=== PATIENT | female | born 1945 | race Two or more races ===

== ENCOUNTER 2017-03-18 11:29 | Emergency (ER) | payer MEDICARE, OTHER | END 2017-03-18 14:55 | disposition home or self-care (01) | LOC: FTE 11:29 | DX: M25.552 Pain in left hip (principal); J45.909 Unspecified asthma, uncomplicated; M54.9 Dorsalgia, unspecified; Z79.84 Long term (current) use of oral hypoglycemic drugs | CPT/HCPCS: 70450; 73510; 99284-25 ==

== ENCOUNTER 2018-09-30 21:52 | Emergency (ER) | payer MEDICARE, OTHER ==
[2018-10-01 01:41] LABS: URINE BLOOD (Dip) POC Trace-intact (NEGATIVE); URINE GLUCOSE (Dip) POC Negative (NEGATIVE); URINE KETONES (Dip) POC Trace (NEGATIVE); URINE LEUKOCYTE EST (Dip) POC Trace (NEGATIVE); URINE NITRITE (Dip) POC Negative (NEGATIVE); URINE TOTAL PROTEIN POC 3+ (NEGATIVE)
[2018-10-01 01:41] LABS: URINE PH (Dip) POC 5.5 (5.0-8.5)
[2018-10-01 01:46] LABS: ADD MAN DIFF? NO
[2018-10-01 01:48] LABS: WHITE BLOOD COUNT 11.4 10^3/ul (4.8-10.8)
[2018-10-01 01:48] LABS: BASOPHIL # 0.1 10^3/ul (0.0-0.1); BASOPHILS % 0.9 % (0.0-2.0); EOSINOPHILS # 0.5 10^3/ul (0.0-0.5); EOSINOPHILS % 4.8 % (0.0-7.0); HEMATOCRIT 48.7 % (37.0-47.0); HEMOGLOBIN 15.2 g/dl (12.0-16.0); LYMPHOCYTES # 2.8 10^3/ul (0.8-2.9); LYMPHOCYTES % 24.2 % (15.0-51.0); MEAN CORPUSCULAR HEMOGLOBIN 26.3 pg (29.0-33.0); MEAN CORPUSCULAR HGB CONC 31.2 g/dl (32.0-37.0); MEAN CORPUSCULAR VOLUME 84.3 fl (82.0-101.0); MEAN PLATELET VOLUME 9.3 fl (7.4-10.4); MONOCYTE # 0.7 10^3/ul (0.3-0.9); MONOCYTES % 5.9 % (0.0-11.0); NEUTROPHIL # 7.3 10^3/ul (1.6-7.5); NEUTROPHILS % 63.8 % (39.0-77.0); PLATELET COUNT 324 10^3/UL (140-415); RED BLOOD COUNT 5.78 10^6/ul (4.20-5.40); RED CELL DISTRIBUTION WIDTH 14.3 % (11.5-14.5)
[2018-10-01 02:05] LABS: ALANINE AMINOTRANSFERASE 14 IU/L (13-69); ALBUMIN 4.7 g/dl (3.3-4.9); ALBUMIN/GLOBULIN RATIO 1.17; ALKALINE PHOSPHATASE 92 IU/L (42-121); ANION GAP 12 (5-13); ASPARTATE AMINO TRANSFERASE 27 IU/L (15-46); BILIRUBIN,INDIRECT 0.5 mg/dl (0-1.1); BILIRUBIN,TOTAL 0.5 mg/dl (0.2-1.3); BLOOD UREA NITROGEN 34 mg/dl (7-20); CALCIUM 10.7 mg/dl (8.4-10.2); CARBON DIOXIDE 31 mmol/L (21-31); CHLORIDE 103 mmol/L (97-110); CREATININE 1.54 mg/dl (0.44-1.00); GLUCOSE 137 mg/dl (70-220); LIPASE 329 U/L (23-300); POTASSIUM 3.9 mmol/L (3.5-5.1); SODIUM 146 mmol/L (135-144); TOTAL PROTEIN 8.7 g/dl (6.1-8.1)
[2018-10-01 02:16] LABS: TROPONIN-I 0.022 ng/ml (0.000-0.120)
[2018-10-01] MEDS: SOD CHLORIDE 0.9% 500 ML IV ×2 (04:39→04:49)
[2018-10-01] MEDS: ONDANSETRON 4 MG INJ IV (04:39)
== END 2018-10-01 06:02 | disposition home or self-care (01) ==
LOC: E/R 21:52
DX: E86.0 Dehydration (principal); R10.9 Unspecified abdominal pain; I10 Essential (primary) hypertension; E11.9 Type 2 diabetes mellitus without complications; J44.9 Chronic obstructive pulmonary disease, unspecified; Z79.84 Long term (current) use of oral hypoglycemic drugs
CPT/HCPCS: 36415; 80053; 81003; 83690; 84484; 85025; 93005; 96374; 99284-25

== ENCOUNTER 2018-11-20 09:33 | Emergency (ER) | payer MEDICARE, OTHER ==
[2018-11-20] MEDS: IBUPROFEN 600 MG TAB PO (10:52)
[2018-11-20] MEDS ORDERED: LIDOCAINE 1% (MDV) 20 ML INJ SC (12:00)
== END 2018-11-20 12:26 | disposition home or self-care (01) ==
LOC: FTE 09:33
DX: M54.5 Low back pain (principal); M54.6 Pain in thoracic spine; I10 Essential (primary) hypertension; J45.909 Unspecified asthma, uncomplicated; Z79.84 Long term (current) use of oral hypoglycemic drugs; Z87.891 Personal history of nicotine dependence
CPT/HCPCS: 71045; 72125; 72128; 72131; 73030; 93005; 99284-25